=== PATIENT | female | born 2000 | race Caucasian/White ===

== ENCOUNTER 2023-07-22 01:15 | Emergency (ER) | payer BC, SELFPAY ==
--- NOTE | ~2023-07-22 | XR_ITS ---
Clinical Indication: Dizziness, tachycardia PA and lateral views of the chest: Comparison: None Findings: The lungs are clear, without evidence of focal consolidation or pleural effusion. Cardiome diastinal silhouette is within normal limits. Bones and soft tissues are unremarkable. Impression: Normal chest. Reviewed, dictated and finalized at location . Impression: Normal chest.
[2023-07-22 01:45] VITALS: BP 117/69; PULSE 108; RESP 16; TEMP 36.4; O2SAT 100
--- NOTE | 2023-07-22 03:38 | ED.ARRPALP ---
HPI - Arrhythmia/Palpitations General Chief Complaint: Arrhythmia/Palpitations <MARIA G Cazares Last Filed: 07/22/23 04:02> Stated Complaint: heart felt like it was racing when i woke up <MARIA G Cazares Last Filed: 07/22/23 04:02> Time Seen by Provider: 07/22/23 01:41 <MARIA G Cazares Last Filed: 07/22/23 04:02> Source: patient <MARIA G Cazares Last Filed: 07/22/23 04:02> Mode of arrival: ambulatory <MARIA G Cazares Filed: 07/22/23 04:02> Limitations: no limitations <MARIA G Cazares Last Filed: 07/22/23 04:02> History of Present Illness HPI narrative: Patient is a 23-year-old female, with past medical history of anxiety, who presents the ED with report of palpitations. Patient reports she woke up at 12:50 a.m. and felt as though her heart was racing. States she checked her Apple watch and her heart rate was up to 140s through 160s beats per minute. She felt slightly lightheaded and had mild chest pressure at that time. She then prompted here. States she feels improved currently. States she has had similar palpitations in the past, but they have not been this test. Denies shortness of breath. Denies syncope. Denies recent illness, cough or cold symptoms, fevers, pain or swelling in legs. Denies history of cardiac issues. Denies family history of heart disease. She does note 1 of her aunts has history of SVT. <MARIA G Cazares Last Filed: 07/22/23 04:02> Related Data Allergies/Adverse Reactions: Allergies Allergy/AdvReac Type Severity Reaction Status Date / Time Penicillins Allergy Intermediate Hives Verified 06/29/23 10:27 <MARIA G Cazares Last Filed: 07/22/23 04:02> Review of Systems Review of Systems: CONSTITUTIONAL: Denies fever, chills, or sweats. CARDIOVASCULAR: See HPI. RESPIRATORY: Denies cough or dyspnea. GASTROINTESTINAL: Denies abdominal pain, nausea, vomiting. MUSCULOSKELETAL: Denies back pain, extremity pain, myalgia. NEUROLOGIC: See HPI put <Ladi Nelson PA-C - Last Filed: 07/22/23 04:02> All systems reviewed & are unremarkable except as noted in HPI and below <Ladi Nelson PA-C - Last Filed: 07/22/23 04:02> PMFSH Past Medical History Medical History: Medical History Allergies <Ladi Nelson PA-C - Last Filed: 07/22/23 04:02> Family History Family History: Family History Grandparent Hypertension Thyroid disorder <Ladi Nelson PA-C - Last Filed: 07/22/23 04:02> Social History Social History: Social History Smoking status: Never smoker Second hand tobacco smoke exposure: No Alcohol intake: never Substance use: never Do You Feel Safe in your Home?: Yes Lack of Transportation: No Lack of Food: Never True Current Housing: I Have Housing Concerned About Future Housing: No Difficulty Paying Gas/Electric Bills: No Difficulty Paying for Meds: No Currently Unemployed: No Education: High School Diploma/GED Difficulty w/ Childcare or Family Care: No Living arrangements: with family Occupation/Education: student Additional occupation/education comments: [employer] Gender identity (if verbalized by the patient): Female Agree to blood products: Yes <Ladi Nelson PA-C - Last Filed: 07/22/23 04:02> Exam Narrative: GENERAL: Well appearing, well-nourished, non-toxic, in no acute distress. HEAD: Normocephalic, atraumatic. RESPIRATORY: Airway patent, respirations nonlabored. Clear to auscultation bilaterally, no rales, rhonchi, wheezing. CARDIOVASCULAR: Borderline tachycardic with regular rhythm without murmurs, rubs, or gallops. ABDOMINAL: Soft, nontender, nondistended. Normoactive BS. MUSCULOSKELETAL: Moves all extremities. No gross deformities. No lower extremity edema. No calf tenderness. SKIN: Warm, dry, normal color. NEURO: A&O X3. Speech clear. Cranial nerves II-XII grossly intact. Steady gait. No ataxic movements. No focal neurologic deficits. PSYCHIATRIC: Appropriate mood and affect. Normal interaction. <Ladi Nelson PA-C - Last Filed: 07/22/23 04:02> Course Course Emergency Course: Labs normal. Chest x-ray reviewed. Appropriate for discharge. <Elieser Orozco MD - Last Filed: 07/22/23 05:31> STITCHING MACHINE FEEDER OR OFFBEARER/PA Physician Supervision This visit was performed by both a physician and an APC. I performed all aspects of the MDM as documented. <Elieser Orozco MD - Last Filed: 07/22/23 05:31> Vital Signs Vital signs: Vital Signs Temperature 97.6 F 07/22/23 01:45 Pulse Rate 108 H 07/22/23 01:45 Respiratory Rate 16 07/22/23 01:45 Blood Pressure 117/69 07/22/23 01:45 Pulse Oximetry 100 07/22/23 01:45 Oxygen Delivery Room Air 07/22/23 01:45 Temperature 97.6 F 07/22/23 01:45 Pulse Rate 94 07/22/23 05:04 Respiratory Rate 18 07/22/23 05:04 Blood Pressure 109/77 07/22/23 05:04 Pulse Oximetry 100 07/22/23 05:04 Oxygen Delivery Room Air 07/22/23 01:45 <Ladi Nelson PA-C - Last Filed: 07/22/23 04:02> Vital Signs Temperature 97.6 F 07/22/23 01:45 Pulse Rate 108 H 07/22/23 01:45 Respiratory Rate 16 07/22/23 01:45 Blood Pressure 117/69 07/22/23 01:45 Pulse Oximetry 100 07/22/23 01:45 Oxygen Delivery Room Air 07/22/23 01:45 Temperature 97.6 F 07/22/23 01:45 Pulse Rate 94 07/22/23 05:04 Respiratory Rate 18 07/22/23 05:04 Blood Pressure 109/77 07/22/23 05:04 Pulse Oximetry 100 07/22/23 05:04 Oxygen Delivery Room Air 07/22/23 01:45 <Elieser Orozco MD - Last Filed: 07/22/23 05:31> MDM - Arrhythmia/Palpitations MDM Narrative Medical decision making narrative: Patient presented to ED with palpitations, lightheadedness, chest pressure. Vital signs are stable upon arrival. Patient borderline tachycardic. EKG with sinus tachycardia, nonspecific ST changes, no significant ST elevation or depression. Chest x-ray interpreted by myself without evidence of focal abnormality. Patient given fluids in the ED. HR improved into 80s-90s. Laboratory studies obtained and pending. Care signed out to Dr. Orozco at shift change pending laboratory results. <Ladi Nelson PA-C - Last Filed: 07/22/23 04:02> Medical Records Attestation: I reviewed the patient's medical records. <Ladi Nelson PA-C - Last Filed: 07/22/23 04:02> Lab Data Attestation: I reviewed the patient's lab results. <Ladi Nelson PA-C - Last Filed: 07/22/23 04:02> Result diagrams: 07/22/23 03:11 <Ladi Nelson PA-C - Last Filed: 07/22/23 04:02> Labs: Lab Results 07/22/23 Range/Units 03:11 WBC 7.3 (4.5-10.0) K/mm3 RBC 4.42 (4.2-5.4) M/mm3 Hgb 12.9 (12.0-15.0) g/dL Hct 37.9 (37.0-47.0) % MCV 85.7 (80-100) fl MCH 29.2 (26-34) pg MCHC 34.0 (32-36) g/dl RDW 12.3 (11.5-14.5) % Plt Count 304 (150-375) k/mm3 MPV 10.3 (7.4-10.4) fl Immature Gran % (Auto) 0.3 (0-0.5) % Neut % (Auto) 64.9 (45.5-73.1) % Lymph % (Auto) 24.5 (18.3-44.2) % [place] % (Auto) 7.8 (2.6-8.5) % Eos % (Auto) 1.8 (0-4.4) % Baso % (Auto) 0.7 (0.2-1.2) % Lymph # (Auto) 1.79 (0.9-3.2) K/mm3 [place] # (Auto) 0.6 (0.1-0.6) K/mm3 Eos # (Auto) 0.1 (0-0.3) K/mm3 Baso # (Auto) 0.1 (0.0-0.1) K/mm3 Abs Immat Gran (auto) 0.02 (0.00-0.031) K/mm3 Absolute Neuts (auto) 4.8 (1.3-6.7) K/mm3 Absolute Nucleated RBC 0.000 (0.0-0.012) K/mm3 Nucleated RBC % 0.0 (0.0-0.2) % PT 13.1 (11.1-14.7) Seconds INR 1.0 APTT 25.5 (22.3-36.8) Seconds Urine Color Yellow (Yellow) Urine Appearance Clear (Clear) Urine pH 6.0 (5.0-9.0) Ur Specific [place] 1.023 (1.001-1.035) Urine Protein Negative (Negative) mg/dL Urine Glucose (UA) Negative (Negative) mg/dL Urine Ketones Trace H (Negative) mg/dL Ur Blood (Man) Negative (Negative) Urine Nitrate Negative (Negative) Urine Bilirubin Negative (Negative) Urine Urobilinogen 1.0 (<2.0) mg/dL Leukocyte Esterase Rfl Negative (Negative) ANDREW/UL <Ladi Nelson PA-C - Last Filed: 07/22/23 04:02> Lab Results 07/22/23 Range/Units 03:11 WBC 7.3 (4.5-10.0) K/mm3 RBC 4.42 (4.2-5.4) M/mm3 Hgb 12.9 (12.0-15.0) g/dL Hct 37.9 (37.0-47.0) % MCV 85.7 (80-100) fl MCH 29.2 (26-34) pg MCHC 34.0 (32-36) g/dl RDW 12.3 (11.5-14.5) % Plt Count 304 (150-375) k/mm3 MPV 10.3 (7.4-10.4) fl Immature Gran % (Auto) 0.3 (0-0.5) % Neut % (Auto) 64.9 (45.5-73.1) % Lymph % (Auto) 24.5 (18.3-44.2) % [place] % (Auto) 7.8 (2.6-8.5) % Eos % (Auto) 1.8 (0-4.4) % Baso % (Auto) 0.7 (0.2-1.2) % Lymph # (Auto) 1.79 (0.9-3.2) K/mm3 [place] # (Auto) 0.6 (0.1-0.6) K/mm3 Eos # (Auto) 0.1 (0-0.3) K/mm3 Baso # (Auto) 0.1 (0.0-0.1) K/mm3 Abs Immat Gran (auto) 0.02 (0.00-0.031) K/mm3 Absolute Neuts (auto) 4.8 (1.3-6.7) K/mm3 Absolute Nucleated RBC 0.000 (0.0-0.012) K/mm3 Nucleated RBC % 0.0 (0.0-0.2) % PT 13.1 (11.1-14.7) Seconds INR 1.0 APTT 25.5 (22.3-36.8) Seconds Urine Color Yellow (Yellow) Urine Appearance Clear (Clear) Urine pH 6.0 (5.0-9.0) Ur Specific [place] 1.023 (1.001-1.035) Urine Protein Negative (Negative) mg/dL Urine Glucose (UA) Negative (Negative) mg/dL Urine Ketones Trace H (Negative) mg/dL Ur Blood (Man) Negative (Negative) Urine Nitrate Negative (Negative) Urine Bilirubin Negative (Negative) Urine Urobilinogen 1.0 (<2.0) mg/dL Leukocyte Esterase Rfl Negative (Negative) ANDREW/UL <Elieser Orozco MD - Last Filed: 07/22/23 05:31> Imaging Data Attestation: I personally reviewed and interpreted this imaging study as follows: <Ladi Nelson PA-C - Last Filed: 07/22/23 04:02> My impression: CXR: Clear <Ladi Nelson PA-C - Last Filed: 07/22/23 04:02> ECG Data EKG #1: Attestation: I personally reviewed and interpreted this ECG as follows: <Ladi Nelson PA-C - Last Filed: 07/22/23 04:02> ECG completion date: 07/22/23 <Ladi Nelson PA-C - Last Filed: 07/22/23 04:02> ECG completion time: 01:20 <MARIA G Cazares Last Filed: 07/22/23 04:02> EKG Interpretation: tachycardia (108), sinus rhythm and non-specific ST changes <Ladi Nelson PA-C - Last Filed: 07/22/23 04:02> Discharge Plan Discharge Clinical Impression: Palpitations, Anxiety <Ladi Nelson PA-C - Last Filed: 07/22/23 04:02> Patient Disposition: Home, Self-Care <Ladi Nelson PA-C - Last Filed: 07/22/23 04:02> Condition: Stable <Ladi Nelson PA-C - Last Filed: 07/22/23 04:02> Instructions: Antibiotic Form, Heart Palpitations (ED) <Ladi Nelson PA-C - Last Filed: 07/22/23 04:02> Additional Instructions: Follow-up with your PCP for further evaluation. Return to the ED if you experience worsening or severe symptoms, chest pain, difficulty breathing, pain or swelling in legs, unable to keep down food or drink, or any other symptoms of concern. <Ladi Nelson PA-C - Last Filed: 07/22/23 04:02> Prescriptions: No Action fluoxetine 10 mg capsule 10 mg PO DAILY Qty: 30 0RF doxepin 10 mg capsule 10 mg PO QHS PRN (Reason: insomnia) Qty: 90 0RF <Ladi Nelson PA-C - Last Filed: 07/22/23 04:02> Follow-up/Referrals: Caleb Randolph, DO [Primary Care Provider] - <Ladi Nelson PA-C - Last Filed: 07/22/23 04:02> Quality HEART score for chest pain patients History: slightly suspicious <Ladi Nelson PA-C - Last Filed: 07/22/23 04:02> ECG: non specific repolarization disturbance/LBTB/PM <Ladi Nelson PA-C - Last Filed: 07/22/23 04:02> Age: < or = to 45 years <Ladi Nelson PA-C - Last Filed: 07/22/23 04:02> Risk factors: no risk factors known <Ladi Nelson PA-C - Last Filed: 07/22/23 04:02> Troponin: < or = to 1x normal limit <Ladi Nelson PA-C - Last Filed: 07/22/23 04:02> Heart score: 1 <Ladi Nelson PA-C - Last Filed: 07/22/23 04:02> 1 <Elieser Orozco MD - Last Filed: 07/22/23 05:31>
[2023-07-22 04:24] LABS: Appearance Urine Clear (Clear); Basophils Absolute Auto 0.1 K/mm3 (0.0-0.1); Basophils Percent Auto 0.7 % (0.2-1.2); Bilirubin Urine Negative (Negative); Blood Urine Negative (Negative); Color Urine Yellow (Yellow); Eosinophils Absolute Auto 0.1 K/mm3 (0-0.3); Eosinophils Percent Auto 1.8 % (0-4.4); Glucose Urine UA Negative (Negative); Hematocrit 37.9 % (37.0-47.0); Hemoglobin 12.9 g/dL (12.0-15.0); Immature Granulocyte Absolute 0.02 K/mm3 (0.00-0.031); Immature Granulocyte Percent A 0.3 % (0-0.5); Ketones Urine Trace mg/dL (Negative); Leukocyte Esterase Ur Negative LEU/UL (Negative); Lymphocytes Absolute Auto 1.79 K/mm3 (0.9-3.2); Lymphocytes Percent Auto 24.5 % (18.3-44.2); Mean Corpuscular Hemoglobin 29.2 pg (26-34); Mean Corpuscular Volume 85.7 fl (80-100); Mean Platelet Volume 10.3 fl (7.4-10.4); Monocytes Absolute Auto 0.6 K/mm3 (0.1-0.6); Monocytes Percent Auto 7.8 % (2.6-8.5); Neutrophils Absolute Auto 4.8 K/mm3 (1.3-6.7); Neutrophils Percent Auto 64.9 % (45.5-73.1); Nitrate Urine Negative (Negative); Platelet Count Result 304 k/mm3 (150-375); Protein Urine Negative (Negative); Red Blood Count 4.42 M/mm3 (4.2-5.4); Red Cell Distribution Width 12.3 % (11.5-14.5); Specific Grav Ur 1.023 (1.001-1.035); White Blood Count 7.3 K/mm3 (4.5-10.0)
--- NOTE | 2023-07-22 04:27 | PC.NURSE ---
Normal saline bolus 1,000mL administered on downtime.
[2023-07-22 04:28] LABS: Add Urine Microscopic? NO; Partial Thromboplastin Time 25.5 Seconds (22.3-36.8); Prothrombin Time 13.1 Seconds (11.1-14.7)
[2023-07-22 05:04] VITALS: BP 109/77; PULSE 94; RESP 18; O2SAT 100
[2023-07-22 05:50] LABS: Alanine Aminotransferase 12 U/L (6-35); Albumin Level 4.8 g/dL (3.5-5.1); Alkaline Phosphatase 50 U/L (38-126); Anion Gap 9 mmol/L (4-12); Aspartate Amino Transferase 20 U/L (14-36); Bilirubin,Total 0.4 mg/dL (0.2-1.3); Blood Urea Nitrogen 8 mg/dL (7-17); Calcium 9.5 mg/dL (8.4-10.2); Carbon Dioxide 23 mmol/L (22-30); Chloride 109 mmol/L (98-107); Estimated Glomerular Filt Rate > 60; Glucose 110 mg/dL (65-110); Magnesium 2.1 mg/dL (1.6-2.3); Potassium 3.7 mmol/L (3.4-5.0); Sodium 141 mmol/L (137-145); Troponin I < 0.012 ng/mL (0.000-0.034)
[2023-07-22 06:01] VITALS: BP 132/74; PULSE 89; RESP 16; O2SAT 100
== END 2023-07-22 06:02 | disposition home or self-care (01) ==
LOC: ANHED 04:03
PROVIDERS: Emergency Provider Physician Assistant; PCP Internal Medicine
DX: R00.2 Palpitations (principal); F41.9 Anxiety disorder, unspecified
CPT/HCPCS: 36415; 71046; 80053; 81003; 83735; 84443; 84484; 85025; 85610; 85730; 99284; J7030